=== PATIENT | male | born 1935 | race Caucasian/White ===

== ENCOUNTER 2017-04-10 19:23 | Inpatient (IN) | payer MEDICARE, OTHER ==
[~2017-04-10] VITALS: Ht 162.6 cm; Wt 84.0 kg
[~2017-04-10 19:23] MED LIST: DOXA4TAB3 PO; DUTA0.5C PO; FURO40TA4 PO; LOSA100T7 PO; OMEP20CA16 PO; SIMV40TA2 PO; [UNRECOGNIZED DRUG - CODE] TOP
[2017-04-10] MEDS ORDERED: ACETAMINOPHEN 325 MG TAB PO STA (19:48)
[2017-04-10] MEDS ORDERED: CEFEPIME 2GM/50 ML (PMX) 50 ML IVPB STA (19:48)
[2017-04-10] MEDS ORDERED: SODIUM CHLORIDE 0.9% 1L BAG IV* STA (19:48)
[2017-04-10] MEDS ORDERED: VANCOMYCIN 1 GM (PMX) 250 ML IVPB ONE (20:00)
[2017-04-10] MEDS ORDERED: FURO40TA4 PO (20:06)
[2017-04-10] MEDS ORDERED: ESOM40CA PO (20:08)
[2017-04-10 20:40] LABS: ABNORMAL IP MESSAGE 1; BASOPHILS % 0.1 % (0.0-2.0); EOSINOPHILS # 0.2 10^3/ul (0.0-0.5); EOSINOPHILS % 1.8 % (0.0-7.0); HEMATOCRIT 39.5 % (42.0-52.0); HEMOGLOBIN 13.7 g/dl (14.0-18.0); LYMPHOCYTES # 0.3 10^3/ul (0.8-2.9); LYMPHOCYTES % 4.2 % (15.0-51.0); MEAN CORPUSCULAR HEMOGLOBIN 31.2 pg (29.0-33.0); MEAN CORPUSCULAR HGB CONC 34.7 g/dl (32.0-37.0); MEAN PLATELET VOLUME 9.5 fl (7.4-10.4); MONOCYTE # 0.4 10^3/ul (0.3-0.9); MONOCYTES % 5.1 % (0.0-11.0); NEUTROPHIL # 7.2 10^3/ul (1.6-7.5); NEUTROPHILS % 88.4 % (39.0-77.0); PLATELET COUNT 137 10^3/UL (140-415); POSITIVE DIFF @See below; RED BLOOD COUNT 4.39 10^6/ul (4.70-6.10); RED CELL DISTRIBUTION WIDTH 13.2 % (11.5-14.5); WHITE BLOOD COUNT 8.2 10^3/ul (4.8-10.8)
[2017-04-10 20:45] LABS: ADD UMIC YES; UR ASCORBIC ACID NEGATIVE (NEGATIVE); UR BILIRUBIN (Dip) NEGATIVE (NEGATIVE); UR BLOOD (Dip) 1+ mg/dL (NEGATIVE); UR CLARITY SLIGHTLY CLOUDY (CLEAR); UR COLOR YELLOW (YELLOW); UR GLUCOSE (Dip) NEGATIVE (NEGATIVE); UR KETONES (Dip) NEGATIVE (NEGATIVE); UR LEUKOCYTE ESTERASE (Dip) 2+ Leu/ul (NEGATIVE); UR NITRITE (Dip) NEGATIVE (NEGATIVE); UR RBC 2 /HPF (0-5); UR SPECIFIC GRAVITY (Dip) 1.015 (1.003-1.030); UR TOTAL PROTEIN (Dip) NEGATIVE (NEGATIVE); UR UROBILINOGEN (Dip) NEGATIVE (NEGATIVE); UR WBC CLUMPS FEW /HPF (NONE SEEN)
[2017-04-10 20:55] LABS: INR 0.94; PROTIME 12.6 Sec (12.2-14.2)
[2017-04-10 20:56] LABS: PARTIAL THROMBOPLASTIN TIME 28.6 Sec (25.0-35.0)
[2017-04-10 20:57] LABS: ALBUMIN 4.5 g/dl (3.3-4.9); ALBUMIN/GLOBULIN RATIO 1.04; BILIRUBIN,INDIRECT 0.2 mg/dl (0-1.1); BILIRUBIN,TOTAL 0.2 mg/dl (0.2-1.3); CALCIUM 9.7 mg/dl (8.4-10.2); CREATININE 1.03 mg/dl (0.61-1.24); TOTAL PROTEIN 8.8 g/dl (6.1-8.1)
[2017-04-10 21:08] LABS: TROPONIN-I 0.013 ng/ml (0.00-0.12)
--- NOTE | 2017-04-11 02:20 | RADRPT ---
PROCEDURE: XR Chest. CLINICAL INDICATION: Sepsis TECHNIQUE: Portable single view of the chest COMPARISON: 05/26/2016 FINDINGS: Again seen is cardiomegaly and ectatic and calcified aorta. Pulmonary vascular congestion with alve olar opacity throughout both lung roberto again seen. Infiltrates are stable or minimally increased. No pleural effusion is seen. IMPRESSION: Stable or minimal increase in bilateral lung infiltrates. RPTAT: HLBE Physician Catina Date Time Electronically viewed and signed by Lubna Castañeda Physician on 04/11/2017 02:20 LE/
--- NOTE | 2017-04-11 03:01 | ERA ---
ER Documentation Chief Complaint Date/Time DATE: 04/11/17 TIME: 02:58 Chief Complaint fever/chills/sob x 1 day HPI This is an 81-year-old gentleman brought in by his family for fevers chills and shortness of breath for 1 day. Also has a productive cough. No nausea no vomiting. No sick contacts. No chest pain. No diaphoresis. No palpitations. No other current complaints. ROS All systems reviewed and are negative except as per history of present illness. Medications Home Meds Reported Medications Esomeprazole Mag Trihydrate (Nexium) 40 Mg Capsule.dr, 40 MG PO BID, #60 CAP 04/10/17 Furosemide* (Furosemide*) 40 Mg Tablet, 40 MG PO BID, TAB 04/10/17 Losartan Potassium* (Losartan Potassium*) 100 Mg Tablet, 100 MG PO DAILY, TAB 05/24/16 Simvastatin* (Zocor*) 40 Mg Tablet, 40 MG PO QHS, #30 TAB 05/24/16 Dutasteride* (Avodart*) 0.5 Mg Capsule, 0.5 MG PO DAILY, CAP 05/24/16 Doxazosin Mesylate* (Doxazosin Mesylate*) 4 Mg Tablet, 4 MG PO HS, TAB 05/24/16 Discontinued Reported Medications Furosemide* (Furosemide*) 40 Mg Tablet, 40 MG PO DAILY, TAB 05/24/16 Omeprazole* (Omeprazole*) 20 Mg Capsule.dr, 20 MG PO DAILY, #30 CAP 05/24/16 Desoximetasone* (Topicort*) 0.25%-15gm Cream..g., 1 APPLIC TOP BID, #1 TUB 05/24/16 Allergies Allergies: Coded Allergies: No Known Drug Allergy (Verified Allergy, Mild, 04/10/17) PMhx/Soc History of Surgery: Yes (vasectomy) Anesthesia Reaction: No Hx Neurological Disorder: No Hx Respiratory Disorders: Yes (black minor worked as coal minor, sleep apnea) Hx Cardiac Disorders: Yes (htn) Hx Psychiatric Problems: No Hx Miscellaneous Medical Probl: No Hx Alcohol Use: Yes Hx Substance Use: No Hx Tobacco Use: No Physical Exam Vitals Vital Signs Date Time Temp Pulse Resp B/P Pulse Ox O2 Delivery O2 Flow Rate FiO2 04/11/17 01:46 87 24 103/49 96 Nasal Cannula 2.0 04/10/17 23:00 102 34 117/56 95 04/10/17 22:45 98.9 106 32 117/53 95 Nasal Cannula 2.0 04/10/17 21:00 118 29 142/58 96 04/10/17 20:10 Nasal Cannula 2 04/10/17 19:38 124 26 141/57 92 04/10/17 19:25 104.7 132 28 127/57 89 Physical Exam Const: [] Head: Atraumatic Eyes: Normal Conjunctiva ENT: Normal External Ears, Nose and Mouth. Neck: Full range of motion..~ No meningismus. Resp: Clear to auscultation bilaterally Cardio: Regular rate and rhythm, no murmurs Abd: Soft, non tender, non distended. Normal bowel sounds Skin: No petechiae or rashes Back: No midline or flank tenderness Ext: No cyanosis, or edema Neur: Awake and alert Psych: Normal Mood and Affect Result Diagram: 04/10/17201904/10/172019 Results 24 hrs Laboratory Tests Test 04/10/17 20:20 04/10/17 23:50 04/11/17 02:13 White Blood Count 8.210^3/ul Red Blood Count 4.3910^6/ul Hemoglobin 13.7g/dl Hematocrit 39.5% Mean Corpuscular Volume 90.0fl Mean Corpuscular Hemoglobin 31.2pg Mean Corpuscular Hemoglobin Concent 34.7g/dl Red Cell Distribution Width 13.2% Platelet Count 64135^3/UL Mean Platelet Volume 9.5fl Neutrophils % 88.4% Lymphocytes % 4.2% Monocytes % 5.1% Eosinophils % 1.8% Basophils % 0.1% Nucleated Red Blood Cells % 0.0/100WBC Neutrophils # 7.210^3/ul Lymphocytes # 0.310^3/ul Monocytes # 0.410^3/ul Eosinophils # 0.210^3/ul Basophils # 0.010^3/ul Nucleated Red Blood Cells # 0.010^3/ul Prothrombin Time 12.6Sec Prothrombin Time Ratio 1.0 INR International Normalized Ratio 0.94 Activated Partial Thromboplast Time 28.6Sec Urine Color YELLOW Urine Clarity SLIGHTLY CLOUDY Urine pH 5.0 Urine Specific [place] 1.015 Urine Ketones NEGATIVEmg/dL Urine Nitrite NEGATIVEmg/dL Urine Bilirubin NEGATIVEmg/dL Urine Urobilinogen NEGATIVEmg/dL Urine Leukocyte Esterase 2+Rose/ul Urine Microscopic RBC 2/HPF Urine Microscopic WBC 16/HPF Urine Hemoglobin 1+mg/dL Urine Glucose NEGATIVEmg/dL Urine Total Protein NEGATIVEmg/dl Sodium Level 144mmol/L Potassium Level 4.0mmol/L Chloride Level 103mmol/L Carbon Dioxide Level 24mmol/L Anion Gap 21 Blood Urea Nitrogen 25mg/dl Creatinine 1.03mg/dl Glucose Level 134mg/dl Lactic Acid Level 2.4mmol/L 1.4mmol/L 1.8mmol/L Calcium Level 9.7mg/dl Total Bilirubin 0.2mg/dl Direct Bilirubin 0.00mg/dl Indirect Bilirubin 0.2mg/dl Aspartate Amino Transf (AST/SGOT) 31IU/L Alanine Aminotransferase (ALT/SGPT) 30IU/L Alkaline Phosphatase 64IU/L Troponin I 0.013ng/ml Total Protein 8.8g/dl Albumin 4.5g/dl Globulin 4.30g/dl Albumin/Globulin Ratio 1.04 Current Medications Medications (Trade) Dose Ordered Sig/Kerry Route PRN Reason Start Time Stop Time Status Last Admin Dose Admin Sodium Chloride (NS) 2,610 ml BOLUS OVER 2 HOURS STAT IV* 04/10/17 19:48 04/10/17 19:49 DC Acetaminophen 650 mg 650 mg ONCE STAT PO 04/10/17 19:48 04/10/17 19:49 DC Cefepime HCl 50 ml @ 100 mls/hr ONCE STAT IVPB 04/10/17 19:48 04/10/17 20:17 DC Vancomycin HCl (Vancocin) 250 ml @ 125 mls/hr ONCE ONCE IVPB 04/10/17 20:00 04/10/17 21:59 DC Procedures/MDM EKG: Rate/Rhythm: [Normal Sinus Rhythm] QRS, ST, T-waves: [No changes consistent w/ acute ischemia] Impression: [No evidence of ischemia or arrhythmia] Chest X-ray 1V Interpreted by me: Soft Tissue: No acute abnormalities Bones: No acute abnormalities Mediastinum/Cardiac Silhouette/Lungs: [No acute abnormalities] Patient's infectious symptoms have not stabilized and the patient is at risk of rapid decompensation. The patient will be admitted for careful hydration, antibiotic therapy, and infectious source control. Severe Sepsis Assessment: Infectious Source: [pyleonephritis] End organ damage indicated by: [Lactate > 2.0 mmol/L Severe Sepsis Managment: Blood Cultures X 2 before broad spectrum antibiotics initiated within 3 hours of recognition. 30 ml/kg NS bolus Completed Initial Lactate: 2.4 Repeat Lactate pending Critical Care: Time: 45 minutes Treatments/Evaluations: Emergent fluid management, while maintaining close respiratory support. Immediate broad spectrum antibiotic therapy. Simultaneous assessment for possible sources in order to direct therapy. Consideration for invasive and chemical support to prevent respiratory or cardiac collapse. Septic Shock Assessment (1 hour post 30 ml/kg fluid bolus): Hypotension (SBP < 90 or 40 mmHg drop, MAP < 65): [No] Lactic acid > 4.0 [No] Perfusion Reassessment for Septic Shock: Temp 98.6, Pulse 88, RR 16, BP 116/88 Heart Exam: [Tachycardic] Lung Exam: [No Crackles] Capillary Refill: [Delayed] Peripheral Pulses: [Radially present] Skin: [Mottled, pale] Accepting Care Team: Current data and ongoing care discussed. Time: 3 AM Primary Provider: Patient is admitted to hospitalist Dr. Alvarez. Primary care physician is Dr. Zamarripa, however Dr. Suarez is on-call. Serial paging over the course of 90 minutes resulted in no phone consultation will be admitted to hospitalist Consulting: [XOXOXO] Outstanding Data: none Departure Diagnosis: Primary Impression: Sepsis Qualified Code: A41.9 - Sepsis, due to unspecified organism Condition: Serious PHILLIP MEDINA Apr 11, 2017 03:01
[2017-04-11] MEDS ORDERED: DOCUSATE SODIUM 100 MG CAP PO PRN (04:00)
[2017-04-11] MEDS ORDERED: LEVOFLOXACIN 750MG/D5W (PMX) 150 ML IVPB ONE (04:00)
[2017-04-11] MEDS ORDERED: morphine 2 MG INJ IV PRN (04:00)
[2017-04-11] MEDS ORDERED: NACL 0.9% 3 ML SYG IV SCH (04:00)
[2017-04-11] MEDS ORDERED: BISACODYL (EC) 5 MG TAB PO PRN (04:00)
[2017-04-11] MEDS ORDERED: ONDANSETRON 4 MG INJ IV PRN (04:00)
[2017-04-11 04:04] VITALS: TEMP 99
[2017-04-11 04:50] VITALS: Ht 162.6 cm; Wt 84.0 kg
[2017-04-11] MEDS ORDERED: ALBUTEROL/IPRATROPIUM (NEB) 3 ML AMP HHN STA (05:18)
[2017-04-11] MEDS ORDERED: FUROSEMIDE 40 MG INJ IV ONE (05:30)
[2017-04-11] MEDS: PANTOPRAZOLE 40 MG INJ IV SCH (05:47)
[2017-04-11 05:51] LABS: HEMATOCRIT 36.4 % (42.0-52.0); HEMOGLOBIN 12.4 g/dl (14.0-18.0); MEAN CORPUSCULAR HEMOGLOBIN 30.8 pg (29.0-33.0); MEAN CORPUSCULAR HGB CONC 34.1 g/dl (32.0-37.0); MEAN CORPUSCULAR VOLUME 90.3 fl (82.0-101.0); MEAN PLATELET VOLUME 9.5 fl (7.4-10.4); PLATELET COUNT 128 10^3/UL (140-415); POSITIVE DIFF @See below; RED BLOOD COUNT 4.03 10^6/ul (4.70-6.10); RED CELL DISTRIBUTION WIDTH 13.4 % (11.5-14.5); WHITE BLOOD COUNT 14.4 10^3/ul (4.8-10.8)
[2017-04-11 06:02] LABS: BASOPHILS % 0.1 % (0.0-2.0); LYMPHOCYTES # 0.7 10^3/ul (0.8-2.9); LYMPHOCYTES % 4.4 % (15.0-51.0); MONOCYTE # 1.3 10^3/ul (0.3-0.9); MONOCYTES % 8.7 % (0.0-11.0)
[2017-04-11 06:58] LABS: ALBUMIN 3.7 g/dl (3.3-4.9); BILIRUBIN,INDIRECT 0.5 mg/dl (0-1.1); BILIRUBIN,TOTAL 0.5 mg/dl (0.2-1.3); CREATININE 0.92 mg/dl (0.61-1.24); MAGNESIUM 1.6 mg/dl (1.7-2.5); TOTAL PROTEIN 7.4 g/dl (6.1-8.1)
[2017-04-11 07:53] LABS: BASOPHILS % (M) 1 % (0-2); MONOCYTES % (M) 6 % (0-11); PLATELET ESTIMATE DECREASED; POIKILOCYTOSIS 1+ (0-0)
[2017-04-11 08:00] VITALS: BP 125/59; RESP 18
--- NOTE | 2017-04-11 08:00 | RADRPT ---
PROCEDURE: US Renal CLINICAL INDICATION: Sepsis, urinary tract infection. TECHNIQUE: Multiple sonographic images of the kidneys and bladder were obtained. Evaluation of th e kidneys and bladder was performed as well with mcgee scale and color and Doppler evaluation using a curved array transducer. The images were reviewed on a high-resolution PACS workstation. COMPARISON: No prior studies are available for comparison. FINDINGS: The right kidney measures 10.90 cm. The left kidney measures 10.90 cm. There is normal echogenicity within the parenchyma of the kidneys bilaterally. There is no mass, calculus, or obstructive uropathy. No perinephric fluid collection is seen. There is a Lopez catheter in the urinary bladder. IMPRESSION: 1. Unremarkable renal ultrasound. No evidence of hydronephrosis. RPTAT: AACC Physician Margret Date Time Electronically viewed and signed by Physician Margret on 04/11/2017 08:00 /
--- NOTE | 2017-04-11 08:01 | HP ---
Date/Time of Note Date/Time of Note DATE: 04/11/17 TIME: 07:48 Assessment/Plan VTE Prophylaxis VTE Prophylaxis Intervention: SCD's Lines/Catheters Urinary Cath still in place: Yes Reason Cath still needed: other (indicate) (uti, sepsis) Assessment/Plan Chief Complaint/Hosp Course This is a 81-year-old male being admitted to the [facility] floor for: #1 sepsis: Patient initially presented with tachycardia and tachypnea as well as lactate of 2.4, UA which is positive for UTI. Received IV vancomycin and cefepime in the ED. At the current time we will switch him over to Levaquin 750 mg IV daily. Patient was afebrile. Will continue to monitor white blood cell count. Will await urine and blood culture results #2 urinary tract infection: The current time will put patient on Levaquin IV, and will await urine culture. #3 Wheezing: Respiratory and/or cardiac etiology. Chest x-ray showed possible underlying infiltrates. Will continue Levaquin at this time for possible underlying PNA. Patient currently afebrile. Will also order echocardiogram for further evaluation of the heart. Will also give a DuoNeb treatment. Will also order a BNP level. #4 BPH: This likely could be causing patient's UTI. Will order a PSA level. Patient may need a urology consultation and post void residual volumes. #5 DVT GI prophylaxis: SCDs, Protonix Further treatment strategy will be implemented as per the clinical course Problems: HPI/ROS Admit Date/Time Admit Date/Time Apr 11, 2017 at 03:08 Hx of Present Illness Chief complaint: Dysuria, shaking This is an 81-year-old gentleman brought in by his family for fevers, chills and shortness of breath for 1 day. Also has a productive cough. He also states that he has been noticing burning when he urinates. No nausea no vomiting. No sick contacts. No chest pain. No diaphoresis. No palpitations. No other current complaints. He denies any past cardiac history. Allergies: NKDA Medications: See BULL LUCERO Const: As per HPI Eyes : No pain discharge or redness or change in visual acuity ENT: No pain, sore throat, congestion, congestion, dysphagia or discharge Respiratory: As per HPI Cardiovascular: No chest pain, palpitation, PND, or edema GI : no change in appetite, abdominal pain, nausea, vomiting, diarrhea, constipation, or change in the color his stool Genitourinary: As per HPI Musculoskeletal: No joint pain, back pain, neck pain, restricted range of motion in neck or joints Skin: No rash, bruising or hives Neuro: No headache, dizziness, syncope, seizure, focal weakness Endocrine: No polyuria, polydipsia, temperature intolerance Psych: No hallucination, depression, anxiety or suicidal ideation PMH/Family/Social Past Medical History BPH Past Surgical History Vasectomy Family History Significant Family History: no pertinent family hx Social History Alcohol Use: other (Previous drinking history but has been more than 20 years) Smoking Status: Former smoker Exam/Review of Systems Vital Signs Vitals Vital Signs Date Time Temp Pulse Resp B/P Pulse Ox O2 Delivery O2 Flow Rate FiO2 04/11/17 05:36 77 20 93 21 04/11/17 04:04 99.0 103/49 Nasal Cannula 2.0 Exam Exam General: This is a 81-year-old male lying in bed in some mild distress when he tries to go from a lying to seated position. HEENT: Atraumatic, normocephalic. The pupils are equal, round and reactive. Extraocular motor are intact Neck: Supple with full range of motion. No rigidity or meningismus Chest: Nontender Lungs: Bilateral diffuse expiratory wheezing Heart: Normal S1-S2, Regular rhythm and rate. Possible systolic murmur at the right intercostal space Abdomen: Soft , nontender, nondistended , bowel sounds are present. No guarding no rebound tenderness , No masses or organomegaly. No costovertebral temporal angle mass Extremities: Normal to inspection, no edema no cyanosis Neurologic: Normal mental status, speech normal, cranial nerves II through XII are intact, motor and sensory are intact, no focal weakness Additional Comments PROCEDURE: XR Chest. CLINICAL INDICATION: Sepsis TECHNIQUE: Portable single view of the chest COMPARISON: 05/26/2016 FINDINGS: Again seen is cardiomegaly and ectatic and calcified aorta. Pulmonary vascular congestion with alveolar opacity throughout both lung roberto again seen. Infiltrates are stable or minimally increased. No pleural effusion is seen. IMPRESSION: Stable or minimal increase in bilateral lung infiltrates. RPTAT: HLBE Lubna Castañeda Physician Date Time Electronically viewed and signed by Lubna Castañeda Physician on 04/11/2017 02 :20 LE/ Labs Result Diagram: 04/11/1752104/11/17521 Medications Medications Current Medications Ondansetron HCl (Zofran Inj) 4 mg Q6H PRN IV NAUSEA AND/OR VOMITING; Start at 04:00 Acetaminophen (Tylenol Tab) 650 mg Q6H PRN PO PAIN LEVEL 1-3 OR FEVER; Start at 04:00 Morphine Sulfate (morphine) 2 mg Q4H PRN IV SEVERE PAIN LEVEL 7-10; Start 04/11 at 04:00 Docusate Sodium (Colace) 100 mg Q12H PRN PO CONSTIPATION; Start 04/11/17 at 04: 00 Bisacodyl (Dulcolax) 5 mg DAILY PRN PO CONSTIPATION; Start 04/11/17 at 04:00 Pantoprazole (Protonix Iv) 40 mg DAILY@06 IV Last administered on 04/11/17t 05: 47; Admin Dose 40 MG; Start 04/11/17 at 06:00 Doxazosin Mesylate (Cardura) 4 mg HS PO ; Start 04/11/17 at 21:00 Dutasteride (Avodart) 0.5 mg DAILY PO ; Start 04/11/17 at 09:00 Losartan Potassium (Cozaar) 100 mg DAILY PO ; Start 04/11/17 at 09:00 Atorvastatin Calcium (Lipitor) 20 mg DAILY@21 PO ; Start 04/11/17 at 21:00 YOSELIN GOODMAN Apr 11, 2017 08:01
--- NOTE | 2017-04-11 08:23 | CONS ---
Date/Time of Note Date/Time of Note DATE: 04/11/17 TIME: 08:16 Assessment/Plan Assessment/Plan Additional Assessment/Plan 1. Agree sxs compatible with acute prostatitis or cystitis, abx rev, ultz was negative, will await cultures and keep feliz in for now. Will consider urol eval given meds he been taking for prostatism and will need to carefully check post void residual volume. 2. Hx upper gi bleeding, will cont PPI 3. HBP, will monitor Consultation Date/Type/Reason Admit Date/Time Apr 11, 2017 at 03:08 Date of Consultation: Apr 11, 2017 Type of Consultation: Nephrology Reason for Consultation UTI with hx prostatism Referring Provider: PHILLIP MEDINA Hx of Present Illness Yesterday after noon pt had the onset of "shaking" without sweating, n or vomiting and no accompanying cough, sob, chest or abd pain. 1 d prior had onset of dysuria with hematuria and sl diff voiding. Events surrounding his arrival in the ER are unclear to him. 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, BPH Social History See prior admit Alcohol Use: other (Previous drinking history but has been more than 20 years) Smoking Status: Former smoker Exam/Review of Systems Vital Signs Vitals Vital Signs Date Time Temp Pulse Resp B/P Pulse Ox O2 Delivery O2 Flow Rate FiO2 04/11/17 05:36 77 20 93 21 04/11/17 04:50 Nasal Cannula 2.0 04/11/17 04:04 99.0 103/49 Intake and Output 04/10/17 04/10/17 04/11/17 15:00 23:00 07:00 Intake Total 150 ml Output Total 1500 ml Balance -1350 ml Exam Constitutional: alert, No distress Eyes: EOMI Neck: non-tender, No jvd, No masses, No thyromegaly Respiratory: clear to auscultation Cardiovascular: regular rate and rhythm Gastrointestinal: soft, No hepatomegaly, No splenomegaly, No tender Genitourinary - Male: other (feliz in place) Extremities: No edema, No tenderness Results Result Diagram: 04/11/17 0522 04/11/17 0522 Results 24 hrs Laboratory Tests Test 04/10/17 20:20 04/10/17 23:50 04/11/17 02:13 04/11/17 05:22 White Blood Count 8.2 # 14.4 #H Red Blood Count 4.39 L 4.03 L Hemoglobin 13.7 #L 12.4 L Hematocrit 39.5 #L 36.4 L Mean Corpuscular Volume 90.0 # 90.3 Mean Corpuscular Hemoglobin 31.2 # 30.8 Mean Corpuscular Hemoglobin Concent 34.7 34.1 Red Cell Distribution Width 13.2 # 13.4 Platelet Count 137 L 128 L Mean Platelet Volume 9.5 9.5 Neutrophils % 88.4 H Lymphocytes % 4.2 L 4.4 L Monocytes % 5.1 8.7 Eosinophils % 1.8 Basophils % 0.1 0.1 Nucleated Red Blood Cells % 0.0 0.0 Neutrophils # 7.2 Lymphocytes # 0.3 L 0.7 L Monocytes # 0.4 1.3 H Eosinophils # 0.2 Basophils # 0.0 0.0 Nucleated Red Blood Cells # 0.0 0.0 Prothrombin Time 12.6 Prothrombin Time Ratio 1.0 INR International Normalized Ratio 0.94 Activated Partial Thromboplast Time 28.6 Urine Color YELLOW Urine Clarity SLIGHTLY CLOUDY A Urine pH 5.0 Urine Specific [place] 1.015 Urine Ketones NEGATIVE Urine Nitrite NEGATIVE Urine Bilirubin NEGATIVE Urine Urobilinogen NEGATIVE Urine Leukocyte Esterase 2+ H Urine Microscopic RBC 2 Urine Microscopic WBC 16 H Urine Hemoglobin 1+ H Urine Glucose NEGATIVE Urine Total Protein NEGATIVE Sodium Level 144 144 Potassium Level 4.0 4.0 Chloride Level 103 106 Carbon Dioxide Level 24 24 Anion Gap 21 H 18 H Blood Urea Nitrogen 25 H 23 H Creatinine 1.03 0.92 Glucose Level 134 135 Lactic Acid Level 2.4 *H 1.4 1.8 Calcium Level 9.7 9.0 Total Bilirubin 0.2 0.5 Direct Bilirubin 0.00 0.00 Indirect Bilirubin 0.2 0.5 Aspartate Amino Transf (AST/SGOT) 31 28 Alanine Aminotransferase (ALT/SGPT) 30 27 Alkaline Phosphatase 64 50 Troponin I 0.013 Total Protein 8.8 H 7.4 # Albumin 4.5 3.7 Globulin 4.30 H 3.70 H Albumin/Globulin Ratio 1.04 1.00 Segmented Neutrophils % (Manual) 60 Band Neutrophils % (Manual) 25 H Lymphocytes % (Manual) 8 L Monocytes % (Manual) 6 Basophils % (Manual) 1 Neutrophils # (Manual) 9.2 H Band Neutrophils # 3.6 H Absolute Lymphocytes (Manual) 1.1 Absolute Monocytes (Manual) 0.8 Basophils # (Manual) 0.1 H Smudge Cells % 1 H Platelet Estimate DECREASED Poikilocytosis 1+ Magnesium Level 1.6 L Prostate Specific Antigen 2.2 Thyroid Stimulating Hormone (TSH) Pending Test 04/11/17 07:06 Lab Scanned Report LAB Medications Medications Current Medications Ondansetron HCl (Zofran Inj) 4 mg Q6H PRN IV NAUSEA AND/OR VOMITING; Start at 04:00 Acetaminophen (Tylenol Tab) 650 mg Q6H PRN PO PAIN LEVEL 1-3 OR FEVER; Start at 04:00 Morphine Sulfate (morphine) 2 mg Q4H PRN IV SEVERE PAIN LEVEL 7-10; Start 04/11 at 04:00 Docusate Sodium (Colace) 100 mg Q12H PRN PO CONSTIPATION; Start 04/11/17 at 04: 00 Bisacodyl (Dulcolax) 5 mg DAILY PRN PO CONSTIPATION; Start 04/11/17 at 04:00 Pantoprazole (Protonix Iv) 40 mg DAILY@06 IV Last administered on 04/11/17t 05: 47; Admin Dose 40 MG; Start 04/11/17 at 06:00 Doxazosin Mesylate (Cardura) 4 mg HS PO ; Start 04/11/17 at 21:00 Dutasteride (Avodart) 0.5 mg DAILY PO ; Start 04/11/17 at 09:00 Losartan Potassium (Cozaar) 100 mg DAILY PO ; Start 04/11/17 at 09:00 Atorvastatin Calcium (Lipitor) 20 mg DAILY@21 PO ; Start 04/11/17 at 21:00 SANYA ZALDIVAR MD Apr 11, 2017 08:23
[2017-04-11 12:05] LABS: THYROID STIMULATING HORMONE 1.15 MIU/L (0.465-4.680)
[2017-04-11] MEDS: DUTASTERIDE 0.5 MG CAP PO SCH (12:32)
[2017-04-11] MEDS: LOSARTAN 50 MG TAB PO SCH (12:36)
[2017-04-11 12:43] VITALS: BP 125/60; PULSE 81
--- NOTE | 2017-04-11 13:22 | RADRPT ---
Echocardiogram Report Patient Name: BRANDI PASCAL Gender: Male Date: 1935 Study Date: 11-Apr-2017 Ocular Care Technician: Vannesa [facility] Location: I Ref. Physician: YOSELIN GOODMAN Quality: Adequate Procedures: Transthoracic echocardiogram with complete 2D, M-Mode, and doppler examination. Indications: Shortness of breath. 2D/M Mode Doppler Measurement Value Normal Ranges Measurement Value Normal Ranges LVIDd 2D 3.6 3.5 - 5.6 cm AV Peak Yonas 1.2 m/sec LVIDs 2D 2.7 2.1 - 4.1 cm AV Peak PG 5.5 mmHg LVPWd 2D 1.3 0.6 - 1.1 cm LVOT Peak Yonas 1.0 m/sec IVSd 2D 1.3 0.6 - 1.1 cm LVOT Peak PG 4.3 mmHg AoR Diam 2D 3.2 2.0 - 3.7 cm MV E Peak Yonas 0.7 m/sec EDV 2D 55.3 cm3 MV A Peak Yonas 1.0 m/sec ESV 2D 18.8 cm3 MV E/A 0.7 MV Decel Time 243 msec MV Decel Jasper 3 MV E/A 0.7 TR Peak Yonas 2.5 m/sec TR Peak PG 24.1 mmHg RVSP 27.0 mmHg Findings Left Ventricle: Normal left ventricular systolic function. Normal left ventricular cavity size. Mild concentric left ventricular hypertrophy. Ejection fraction is visually estimated at 65 %. Tissue Doppler/Mitral Doppler indices are consistent with impaired relaxation (Stage I diastolic dysfunction). Right Ventricle: Normal right ventricular size. Normal right ventricular systolic function. Left Atrium: The left atrium is normal in size. Right Atrium: The right atrium is normal in size. Mitral Valve: Mild mitral leaflet calcification. Mild mitral annular calcification. Trace mitral regurgitation. Aortic Valve: Normal appearance of the aortic valve. No significant aortic stenosis or insufficiency. Tricuspid Valve: Normal appearance and function of the tricuspid valve with trace physiologic regurgitation. Estimated peak PA systolic pressure 27 mmHg. Pulmonic Valve: Pulmonic valve not well visualized. There is trace pulmonic regurgitation. Pericardium: Normal pericardium with no significant pericardial effusion. Aorta: Normal aortic root. IVC: Normal size and normal respiratory collapse consistent with normal right atrial pressure. Conclusions 1.Normal left ventricular systolic function. Normal left ventricular cavity size. Mild concentric left ventricular hypertrophy. Ejection fraction is visually estimated at 65 %. Tissue Doppler/Mitral Doppler indices are consistent with impaired relaxation (Stage I diastolic dysfunction). 2.Normal right ventricular size. Normal right ventricular systolic function. 3.The left atrium is normal in size. 4.The right atrium is normal in size. 5.No significant valvular stenosis or regurgitation seen. 6.Normal pericardium with no significant pericardial effusion. Electronically Signed By: Cleve Diaz 11-Apr-2017 13:20:35 -0700 Patient Name: BRANDI PASCAL Study Date: 11-Apr-2017 [id number]
[2017-04-11 14:00] VITALS: BP 133/62; RESP 17
[2017-04-11] MEDS ORDERED: MAGNESIUM SULFATE 2 GM/50 ML 50 ML IVPB ONE (14:30)
[2017-04-11 20:00] VITALS: BP 131/63; RESP 20
[2017-04-11] MEDS ORDERED: NON-FORMULARY/PATIENT OWN MED (Simvastatin* (Zocor*) 40 MG) PO SCH (21:00)
[2017-04-11] MEDS: ATORVASTATIN 20 MG TAB PO SCH (21:30)
[2017-04-11] MEDS: DOXAZOSIN 4 MG TAB PO SCH (21:37)
[2017-04-12 02:00] VITALS: BP 125/50; RESP 19
[2017-04-12 05:40] LABS: BASOPHILS % 0.1 % (0.0-2.0); EOSINOPHILS % 0.3 % (0.0-7.0); HEMATOCRIT 35.7 % (42.0-52.0); HEMOGLOBIN 11.9 g/dl (14.0-18.0); LYMPHOCYTES # 0.7 10^3/ul (0.8-2.9); LYMPHOCYTES % 5.2 % (15.0-51.0); MEAN CORPUSCULAR HEMOGLOBIN 30.1 pg (29.0-33.0); MEAN CORPUSCULAR HGB CONC 33.3 g/dl (32.0-37.0); MEAN CORPUSCULAR VOLUME 90.4 fl (82.0-101.0); MEAN PLATELET VOLUME 9.6 fl (7.4-10.4); MONOCYTE # 0.8 10^3/ul (0.3-0.9); MONOCYTES % 6.5 % (0.0-11.0); NEUTROPHIL # 11.2 10^3/ul (1.6-7.5); NEUTROPHILS % 86.6 % (39.0-77.0); PLATELET COUNT 115 10^3/UL (140-415); POSITIVE DIFF @See below; RED BLOOD COUNT 3.95 10^6/ul (4.70-6.10)
[2017-04-12] MEDS: PANTOPRAZOLE 40 MG INJ IV SCH (06:00)
[2017-04-12] MEDS ORDERED: LEVOFLOXACIN 500MG/D5W (PMX) 100 ML IVPB SCH ×2 (06:00)
[2017-04-12 06:12] LABS: CALCIUM 8.8 mg/dl (8.4-10.2); CREATININE 0.89 mg/dl (0.61-1.24); MAGNESIUM 2.4 mg/dl (1.7-2.5); PHOSPHORUS 2.7 mg/dl (2.5-4.9); POTASSIUM 3.7 mmol/L (3.5-5.1)
[2017-04-12] MEDS: LOSARTAN 50 MG TAB PO SCH (08:35)
[2017-04-12] MEDS: DUTASTERIDE 0.5 MG CAP PO SCH (08:35)
[2017-04-12 08:53] VITALS: BP 125/57; RESP 24
--- NOTE | 2017-04-12 13:50 | RADRPT ---
PROCEDURE: XR Chest. CLINICAL INDICATION: Shortness of breath TECHNIQUE: Single AP portable chest. COMPARISON: 04/10/2017 chest x-ray FINDINGS: Atherosclerotic calcification of the aorta. Decreased vascular congestion/interstitial and alveolar air space disease compared to prior study. No pleural effusion or focal consolidation. The cardia c silhouette is mildly enlarged. No pneumothorax. The osseous structures and soft tissues are unrema rkable. IMPRESSION: 1. Mild cardiomegaly with persistent mild vascular congestion /air space disease decrease compared t o prior examination. 2. No pleural effusion or focal consolidation. RPTAT:AAJJ Irene Taveras Physician Date Time Electronically viewed and signed by Physician Traci on 04/12/2017 13:50 HINA/
--- NOTE | 2017-04-12 13:59 | CONS ---
Date/Time of Note Date/Time of Note DATE: 04/12/17 TIME: 13:52 Assessment/Plan Assessment/Plan Chief Complaint/Hosp Course 1. UTI , he is afebrile on his current antibiotics . 2. He seems SOB but does not c/o of dyspnea . He does have some mild wheezing . Breathing treatments ordered . 3. HTN 4. BPH with urinary retention . He has a Lopez catheter in place . 5. h/o gastritis with UGI bleeding . Problems: Consultation Date/Type/Reason Admit Date/Time Apr 11, 2017 at 03:08 Initial Consult Date 04/11/17 Type of Consultation: Nephrology Referring Provider: PHILLIP MEDINA 24 HR Interval Summary Free Text/Dictation The patient says that he feels well but seems SOB . Constitutional: no complaints Exam/Review of Systems Vital Signs Vitals Vital Signs Date Time Temp Pulse Resp B/P Pulse Ox O2 Delivery O2 Flow Rate FiO2 04/12/17 11:41 Nasal Cannula 2.0 04/12/17 08:53 98.6 95 24 125/57 93 04/11/17 05:36 21 Intake and Output 04/11/17 04/11/17 04/12/17 15:00 23:00 07:00 Intake Total 50 ml 480 ml Output Total 700 ml Balance 50 ml -220 ml Exam Constitutional: alert, frail, oriented Neck: supple Respiratory: diminished breath sounds, wheezing Cardiovascular: regular rate and rhythm Gastrointestinal: soft Musculoskeletal: nl extremities to inspection Results Result Diagram: 04/12/17 0427 04/12/17 0427 Results 24 hrs Laboratory Tests Test 04/12/17 04:27 White Blood Count 13.0 H Red Blood Count 3.95 L Hemoglobin 11.9 L Hematocrit 35.7 L Mean Corpuscular Volume 90.4 Mean Corpuscular Hemoglobin 30.1 Mean Corpuscular Hemoglobin Concent 33.3 Red Cell Distribution Width 14.0 Platelet Count 115 L Mean Platelet Volume 9.6 Neutrophils % 86.6 H Lymphocytes % 5.2 L Monocytes % 6.5 Eosinophils % 0.3 Basophils % 0.1 Nucleated Red Blood Cells % 0.0 Neutrophils # 11.2 H Lymphocytes # 0.7 L Monocytes # 0.8 Eosinophils # 0.0 Basophils # 0.0 Nucleated Red Blood Cells # 0.0 Sodium Level 142 Potassium Level 3.7 Chloride Level 105 Carbon Dioxide Level 25 Anion Gap 16 Blood Urea Nitrogen 22 H Creatinine 0.89 Glucose Level 118 Calcium Level 8.8 Phosphorus Level 2.7 Magnesium Level 2.4 B-Type Natriuretic Peptide 243 Medications Medications Current Medications Ondansetron HCl (Zofran Inj) 4 mg Q6H PRN IV NAUSEA AND/OR VOMITING; Start at 04:00 Acetaminophen (Tylenol Tab) 650 mg Q6H PRN PO PAIN LEVEL 1-3 OR FEVER; Start at 04:00 Morphine Sulfate (morphine) 2 mg Q4H PRN IV SEVERE PAIN LEVEL 7-10; Start 04/11 at 04:00 Docusate Sodium (Colace) 100 mg Q12H PRN PO CONSTIPATION; Start 04/11/17 at 04: 00 Bisacodyl (Dulcolax) 5 mg DAILY PRN PO CONSTIPATION; Start 04/11/17 at 04:00 Pantoprazole (Protonix Iv) 40 mg DAILY@06 IV Last administered on 04/12/17 06: 00; Admin Dose 40 MG; Start 04/11/17 at 06:00 Doxazosin Mesylate (Cardura) 4 mg HS PO Last administered on 04/11/17 21:37; Admin Dose 4 MG; Start 04/11/17 at 21:00 Dutasteride (Avodart) 0.5 mg DAILY PO Last administered on 04/12/17 08:35; Admin Dose 0.5 MG; Start 04/11/17 at 09:00 Losartan Potassium (Cozaar) 100 mg DAILY PO Last administered on 04/12/17 08: 35; Admin Dose 100 MG; Start 04/11/17 at 09:00 Atorvastatin Calcium 20 mg 20 mg DAILY@21 PO Last administered on 04/11/17 21: 30; Admin Dose 20 MG; Start 04/11/17 at 21:00 Levofloxacin/ Dextrose (Levaquin 500mg/ D5W 100 ml (Pmx)) 100 ml @ 100 mls/hr DAILY@06 IVPB Last administered on 04/12/17 06:06; Admin Dose 100 MLS/HR; Start 04/12/17 at 06:00 DISHA JACK MD Apr 12, 2017 13:59
[2017-04-12] MEDS: LEVALBUTEROL (NEB) 1.25 MG/0.5 ML AMP HHN PRN ×2 (14:40→22:12)
[2017-04-12] MEDS: IPRATROPIUM (NEB) 0.5 MG/2.5 ML AMP HHN PRN ×2 (14:48→22:12)
[2017-04-12 15:12] VITALS: BP 125/60; RESP 24
[2017-04-12 18:02] LABS: PSA, FREE 1.3 ng/mL
[2017-04-12 20:31] VITALS: BP 126/58; RESP 16
[2017-04-12] MEDS: ATORVASTATIN 20 MG TAB PO SCH (22:15)
[2017-04-12] MEDS: DOXAZOSIN 4 MG TAB PO SCH (22:15)
[2017-04-12] MEDS: ACETAMINOPHEN 325 MG TAB PO PRN (22:30)
[2017-04-13 02:24] VITALS: BP 130/58; RESP 16
[2017-04-13] MEDS: PANTOPRAZOLE 40 MG INJ IV SCH (06:00)
[2017-04-13] MEDS: LEVOFLOXACIN 500 MG TAB PO SCH (06:00)
[2017-04-13 08:00] VITALS: BP 131/60; RESP 19
[2017-04-13] MEDS: DUTASTERIDE 0.5 MG CAP PO SCH (08:55)
[2017-04-13] MEDS: LOSARTAN 50 MG TAB PO SCH (08:55)
[2017-04-13 14:00] VITALS: BP 135/63; RESP 18
--- NOTE | 2017-04-13 14:05 | PN ---
Date/Time of Note Date/Time of Note DATE: 04/13/17 TIME: 13:59 Assessment/Plan VTE Prophylaxis VTE Prophylaxis Intervention: SCD's Lines/Catheters IV Catheter Type (from [facility], [place]): Saline Lock Urinary Cath still in place: Yes Reason Cath still needed: urinary retention Assessment/Plan Chief Complaint/Hosp Course 1. UTI , he is afebrile on his current antibiotics . He is growing E. coli which is sensitive to Levaquin. 2. He seems to be breathing better today.. 3. HTN 4. BPH with urinary retention . He has a Lopez catheter in place . I explained to him that I will try to discontinue the Lopez catheter; however, if he is not able to empty his bladder he will need to catheter reinserted. I did speak with his urologist Dr. Cota today. 5. h/o gastritis with UGI bleeding . 6. He is anorexic. I will see if he can get up and have a bowel movement this could make him feel better. Problems: Subjective 24 Hr Interval Summary Free Text/Dictation He says that he is not hungry and he has not been eating. He needs to have a bowel movement but he has not been up walking because of the Lopez catheter. He does have some left shoulder pain Constitutional: no complaints Eyes: no complaints ENT: no complaints Respiratory: no complaints Gastrointestinal: constipation, decreased appetite Musculoskeletal: bone/joint pain Exam/Review of Systems Vital Signs Vitals Vital Signs Date Time Temp Pulse Resp B/P Pulse Ox O2 Delivery O2 Flow Rate FiO2 04/13/17 12:15 Nasal Cannula 2.0 04/13/17 08:00 98.3 76 19 131/60 96 04/11/17 05:36 21 Intake and Output 04/12/17 04/12/17 04/13/17 15:00 23:00 07:00 Intake Total 100 ml 480 ml 480 ml Output Total 450 ml 600 ml Balance 100 ml 30 ml -120 ml Exam Constitutional: alert, frail, oriented Neck: supple Respiratory: clear to auscultation, normal air movement Cardiovascular: regular rate and rhythm Gastrointestinal: soft Musculoskeletal: nl extremities to inspection Results Result Diagram: 04/12/17 0427 04/12/17 0427 Medications Medications Current Medications Ondansetron HCl (Zofran Inj) 4 mg Q6H PRN IV NAUSEA AND/OR VOMITING; Start at 04:00 Acetaminophen (Tylenol Tab) 650 mg Q6H PRN PO PAIN LEVEL 1-3 OR FEVER Last administered on 04/12/17 22:30; Admin Dose 650 MG; Start 04/11/17 at 04:00 Morphine Sulfate (morphine) 2 mg Q4H PRN IV SEVERE PAIN LEVEL 7-10; Start 04/11 at 04:00 Docusate Sodium (Colace) 100 mg Q12H PRN PO CONSTIPATION; Start 04/11/17 at 04: 00 Bisacodyl (Dulcolax) 5 mg DAILY PRN PO CONSTIPATION; Start 04/11/17 at 04:00 Pantoprazole (Protonix Iv) 40 mg DAILY@06 IV Last administered on 04/13/17 06: 00; Admin Dose 40 MG; Start 04/11/17 at 06:00 Doxazosin Mesylate (Cardura) 4 mg HS PO Last administered on 04/12/17 22:15; Admin Dose 4 MG; Start 04/11/17 at 21:00 Dutasteride (Avodart) 0.5 mg DAILY PO Last administered on 04/13/17 08:55; Admin Dose 0.5 MG; Start 04/11/17 at 09:00 Losartan Potassium (Cozaar) 100 mg DAILY PO Last administered on 04/13/17 08: 55; Admin Dose 100 MG; Start 04/11/17 at 09:00 Atorvastatin Calcium (Lipitor) 20 mg DAILY@21 PO Last administered on 22:15; Admin Dose 20 MG; Start 04/11/17 at 21:00 Levofloxacin (Levaquin) 500 mg DAILY@06 PO Last administered on 04/13/17 06:00 ; Admin Dose 500 MG; Start 04/13/17 at 06:00 DISHA JACK MD Apr 13, 2017 14:05
[2017-04-13 20:50] VITALS: BP 160/68; RESP 18
[2017-04-13 21:00] VITALS: BP 152/70; PULSE 79
[2017-04-13] MEDS: ACETAMINOPHEN 325 MG TAB PO PRN (21:44)
[2017-04-13] MEDS: ATORVASTATIN 20 MG TAB PO SCH (21:44)
[2017-04-13] MEDS: DOXAZOSIN 4 MG TAB PO SCH (21:46)
[2017-04-14 02:51] VITALS: BP 133/95; RESP 18; RESP 84
[2017-04-14 04:24] VITALS: BP 147/65; PULSE 77
[2017-04-14] MEDS: PANTOPRAZOLE 40 MG INJ IV SCH (05:50)
[2017-04-14] MEDS: LEVOFLOXACIN 500 MG TAB PO SCH (05:50)
[2017-04-14] MEDS: ACETAMINOPHEN 325 MG TAB PO PRN ×2 (05:50→15:10)
[2017-04-14 05:51] LABS: ABNORMAL IP MESSAGE 1; BASOPHILS % 0.4 % (0.0-2.0); EOSINOPHILS # 0.3 10^3/ul (0.0-0.5); EOSINOPHILS % 5.7 % (0.0-7.0); HEMOGLOBIN 11.8 g/dl (14.0-18.0); LYMPHOCYTES # 0.6 10^3/ul (0.8-2.9); LYMPHOCYTES % 10.3 % (15.0-51.0); MEAN CORPUSCULAR HEMOGLOBIN 29.9 pg (29.0-33.0); MEAN CORPUSCULAR HGB CONC 32.8 g/dl (32.0-37.0); MEAN CORPUSCULAR VOLUME 91.4 fl (82.0-101.0); MEAN PLATELET VOLUME 9.6 fl (7.4-10.4); MONOCYTE # 0.5 10^3/ul (0.3-0.9); MONOCYTES % 8.5 % (0.0-11.0); NEUTROPHIL # 4.2 10^3/ul (1.6-7.5); NEUTROPHILS % 74.4 % (39.0-77.0); PLATELET COUNT 115 10^3/UL (140-415); POSITIVE DIFF @See below; RED BLOOD COUNT 3.94 10^6/ul (4.70-6.10); RED CELL DISTRIBUTION WIDTH 13.8 % (11.5-14.5); WHITE BLOOD COUNT 5.6 10^3/ul (4.8-10.8)
[2017-04-14 07:01] LABS: ALBUMIN 3.4 g/dl (3.3-4.9); ALBUMIN/GLOBULIN RATIO 0.89; BILIRUBIN,INDIRECT 0.1 mg/dl (0-1.1); BILIRUBIN,TOTAL 0.1 mg/dl (0.2-1.3); CREATININE 0.77 mg/dl (0.61-1.24); POTASSIUM 4.1 mmol/L (3.5-5.1); TOTAL PROTEIN 7.2 g/dl (6.1-8.1)
[2017-04-14 08:00] VITALS: BP 154/71; RESP 20
[2017-04-14] MEDS: DUTASTERIDE 0.5 MG CAP PO SCH (08:57)
[2017-04-14] MEDS: LOSARTAN 50 MG TAB PO SCH (08:57)
[2017-04-14] MEDS ORDERED: FUROSEMIDE 20 MG INJ IV ONE (13:00)
--- NOTE | 2017-04-14 13:02 | PN ---
Date/Time of Note Date/Time of Note DATE: 04/14/17 TIME: 12:56 Assessment/Plan VTE Prophylaxis VTE Prophylaxis Intervention: ambulation Lines/Catheters [facility] Saline Lock Urinary Cath still in place: No Assessment/Plan Chief Complaint/Hosp Course 1. UTI , he is afebrile on his current antibiotics . He is growing E. coli which is sensitive to Levaquin. 2. He seems to be breathing better today.. 3. HTN 4. BPH with urinary retention . The Lopez catheter was removed yesterday and he is voiding well. His last bladder scan showed 18 cc of residual urine. 5. h/o gastritis with UGI bleeding . 6. He is having normal bowel movements. He is up walking with physical therapy. He can be discharged home today after receiving 1 dose of IV Lasix. I will send him home on his routine medications and to continue Levaquin for a full 2 week course of antibiotics. He will see me in my office next week. Problems: Subjective 24 Hr Interval Summary Free Text/Dictation He is feeling better today. He does have a slight cough and some intermittent wheezing. He is up walking with physical therapy and his O2 sat on room air was 94%. He is voiding well without a Lopez catheter. Constitutional: improved, no complaints Cardiovascular: no complaints Gastrointestinal: no complaints Genitourinary: no complaints Neurologic: no complaints Exam/Review of Systems Vital Signs Vitals Vital Signs Date Time Temp Pulse Resp B/P Pulse Ox O2 Delivery O2 Flow Rate FiO2 04/14/17 08:00 98.6 68 20 154/71 96 04/14/17 05:59 2.0 04/13/17 23:48 Nasal Cannula 04/11/17 05:36 21 Intake and Output 04/13/17 04/13/17 04/14/17 15:00 23:00 07:00 Intake Total 470 ml 500 ml Output Total 750 ml Balance -280 ml 500 ml Exam Constitutional: alert, oriented, well developed Neck: supple Respiratory: wheezing Cardiovascular: regular rate and rhythm Gastrointestinal: soft Musculoskeletal: nl extremities to inspection Results Result Diagram: 04/14/17 0515 04/14/17 0515 Results 24 hrs Laboratory Tests Test 04/14/17 05:15 White Blood Count 5.6 # Red Blood Count 3.94 L Hemoglobin 11.8 L Hematocrit 36.0 L Mean Corpuscular Volume 91.4 Mean Corpuscular Hemoglobin 29.9 Mean Corpuscular Hemoglobin Concent 32.8 Red Cell Distribution Width 13.8 Platelet Count 115 L Mean Platelet Volume 9.6 Neutrophils % 74.4 Lymphocytes % 10.3 L Monocytes % 8.5 Eosinophils % 5.7 Basophils % 0.4 Nucleated Red Blood Cells % 0.0 Neutrophils # 4.2 Lymphocytes # 0.6 L Monocytes # 0.5 Eosinophils # 0.3 Basophils # 0.0 Nucleated Red Blood Cells # 0.0 Sodium Level 144 Potassium Level 4.1 Chloride Level 107 Carbon Dioxide Level 26 Anion Gap 15 Blood Urea Nitrogen 18 Creatinine 0.77 Glucose Level 120 Calcium Level 9.0 Total Bilirubin 0.1 L Direct Bilirubin 0.00 Indirect Bilirubin 0.1 Aspartate Amino Transf (AST/SGOT) 29 Alanine Aminotransferase (ALT/SGPT) 34 Alkaline Phosphatase 59 Total Protein 7.2 Albumin 3.4 Globulin 3.80 H Albumin/Globulin Ratio 0.89 Medications Medications Current Medications Ondansetron HCl (Zofran Inj) 4 mg Q6H PRN IV NAUSEA AND/OR VOMITING; Start at 04:00 Acetaminophen (Tylenol Tab) 650 mg Q6H PRN PO PAIN LEVEL 1-3 OR FEVER Last administered on 04/14/17 05:50; Admin Dose 650 MG; Start 04/11/17 at 04:00 Morphine Sulfate (morphine) 2 mg Q4H PRN IV SEVERE PAIN LEVEL 7-10; Start 04/11 at 04:00 Docusate Sodium (Colace) 100 mg Q12H PRN PO CONSTIPATION; Start 04/11/17 at 04: 00 Bisacodyl (Dulcolax) 5 mg DAILY PRN PO CONSTIPATION; Start 04/11/17 at 04:00 Pantoprazole (Protonix Iv) 40 mg DAILY@06 IV Last administered on 04/14/17 05: 50; Admin Dose 40 MG; Start 04/11/17 at 06:00 Doxazosin Mesylate (Cardura) 4 mg HS PO Last administered on 04/13/17 21:46; Admin Dose 4 MG; Start 04/11/17 at 21:00 Dutasteride (Avodart) 0.5 mg DAILY PO Last administered on 04/14/17 08:57; Admin Dose 0.5 MG; Start 04/11/17 at 09:00 Losartan Potassium (Cozaar) 100 mg DAILY PO Last administered on 04/14/17 08: 57; Admin Dose 100 MG; Start 04/11/17 at 09:00 Atorvastatin Calcium (Lipitor) 20 mg DAILY@21 PO Last administered on 21:44; Admin Dose 20 MG; Start 04/11/17 at 21:00 Levofloxacin (Levaquin) 500 mg DAILY@06 PO Last administered on 04/14/17 05:50 ; Admin Dose 500 MG; Start 04/13/17 at 06:00 DISHA JACK MD Apr 14, 2017 13:02
--- NOTE | 2017-04-14 13:09 | PDOCDIS ---
Discharge Instructions CONDITION Patient Condition: Good HOME CARE INSTRUCTIONS: Diet Instructions: Low Fat /CholesterolSpecial Diet: Regular ACTIVITY: Activity Restrictions: No Restrictions Bathing Restrictions: Shower FOLLOW UP/APPOINTMENTS Follow-up Plan DISHA Corea MD Apr 14, 2017 13:09
[2017-04-14 14:00] VITALS: BP 156/70; RESP 18
[2017-04-14 17:45] VITALS: BP 152/70; PULSE 77
--- NOTE | 2017-04-16 07:58 | DS ---
DATE OF ADMISSION: 04/11/2017 DATE OF DISCHARGE: 04/14/2017 REASON FOR ADMISSION: Fever. HISTORY OF PRESENT ILLNESS AND HOSPITAL COURSE: This 81-year-old man was brought in from home by his family because of a fever of 104. The patient was found to have a urinary tract infection and was started on antibiotics. The patient did grow E coli from his urine. The bacteria was sensitive to Levaquin. The patient did have a Lopez catheter placed on admission and had 1500 mL of residual urine. The Lopez catheter was taken out, and the patient is now voiding and doing well. A last bladder scan done showed only 18 mL of residual urine. The patient will be sent home today to the care of his family. He is up walking around and feeling well. DISCHARGE MEDICATIONS: He will resume his routine medications on discharge. Some of those medications will include: 1. Doxazosin 4 mg at bedtime. 2. Losartan 100 mg a day. 3. Simvastatin 40 mg a day. 4. Furosemide 40 mg twice a day. 5. Nexium 40 mg twice a day. 6. Avodart 0.5 mg a day. FOLLOWUP: I will call his daughter and explain his discharge plans. He will continue Levaquin for 9 more days, which will complete a 2-week course of antibiotic. The assumption is that he has benign prostatic hypertrophy with acute prostatitis. He will follow up with me next week and will eventually go to see his urologist, . DISCHARGE CONDITION: The patient was in good condition at the time of discharge. FINAL DIAGNOSES: 1. Urinary tract infection with fever, presumed prostatitis. 2. Hypertension. 3. Hyperlipidemia. 4. Benign prostatic hypertrophy. 5. History of edema, on diuretics. 6. History of upper gastrointestinal (GI) bleeding, on proton- pump inhibitors (PPIs) chronically. Dictated By: Alexi Christopher MD /[email or web address] /Document#: [id number]
== END 2017-04-14 18:19 | disposition home or self-care (01) | DRG 872 ==
LOC: E/R 19:23 → PP2 04-11 03:08
PROVIDERS: ADMIT Internal Medicine; ATTEND Internal Medicine
DX: A41.51 Sepsis due to Escherichia coli [E. coli] (principal); N39.0 Urinary tract infection, site not specified; I10 Essential (primary) hypertension; N41.0 Acute prostatitis; B96.20 Unspecified Escherichia coli [E. coli] as the cause of diseases classified elsewhere; N40.1 Benign prostatic hyperplasia with lower urinary tract symptoms; R33.8 Other retention of urine; R06.02 Shortness of breath; E78.5 Hyperlipidemia, unspecified; Z87.891 Personal history of nicotine dependence; Z98.52 Vasectomy status
CPT/HCPCS: 36415; 71010; 76775; 80048; 80053; 81001; 83605; 83735; 83880; 84100; 84153; 84154; 84443; 84484; 85025; 85610; 85730; 87040; 87086; 93005; 93306; 94640; 94664; 96374; 96375; 97162; J1940; C9113; J0692; J1956; J3475; J7030